=== PATIENT | female | born 1960 | race Caucasian/White ===

== ENCOUNTER 2017-04-04 10:37 | Inpatient (IN) | payer MEDICAID ==
[~2017-04-04] VITALS: Ht 162.6 cm; Wt 110.7 kg
[2017-04-04] MEDS ORDERED: SODIUM CHLORIDE 0.9% 1,000 ML IV ONE (10:43)
[2017-04-04] MEDS ORDERED: KETOROLAC TROMETH 30 MG/ML 1ML VIAL IV ONE ×2 (10:45→16:15)
[2017-04-04] MEDS ORDERED: ONDANSETRON HCL 4 MG/2 ML VIAL IV ONE ×3 (10:45→16:15)
[2017-04-04] MEDS ORDERED: LORazepam 2MG/ML-1ML VIAL IV ONE (10:45)
[2017-04-04 11:06] LABS: Basophils # (auto) 0.1 uL; Basophils % (auto) 0.7 % (0.0-2.0); Eosinophils # (auto) 0.2 uL; Eosinophils % (auto) 2.6 % (0.0-7.0); Hematocrit 44.8 % (36.0-46.0); Hemoglobin 15.1 g/dL (12.2-16.2); Lymphocytes # (auto) 1.7 uL; Lymphocytes % (auto) 19.3 % (10.0-50.0); Mean Corpuscular Hemoglobin 29.7 pg (28.0-32.0); Mean Corpuscular Hgb Conc. 33.6 g/dL (32.0-36.0); Mean Corpuscular Volume 88.4 fL (80.0-100.0); Mean Platelet Volume 9.7 fL (7.4-10.4); Monocytes # (auto) 0.3 uL; Monocytes % (auto) 3.7 % (0.0-12.0); Neutrophils # (auto) 6.6 uL; Neutrophils % (auto) 73.7 % (37.0-80.0); Platelet Count (auto) 212 10^3/uL (140-450)
[2017-04-04 11:20] LABS: INR 0.94 (0.9-1.15); Partial Thromboplastin Time 23.9 sec (22.64-33.71); Prothrombin Time 10.2 sec (9.37-12.3)
[2017-04-04 11:35] LABS: Albumin 3.8 g/dL (3.4-5.0); Alkaline Phosphatase 91 U/L (45-117); Anion Gap 9 (5-15); Aspartate Aminotransferase 18 U/L (15-37); Bilirubin, Total 0.3 mg/dL (0.2-1.0); Blood Urea Nitrogen 22 mg/dL (7-18); Calcium 8.9 mg/dL (8.5-10.1); Carbon Dioxide 27 mmol/L (21-32); Chloride 106 mmol/L (98-107); GFR African American 62 mL/min; GFR Non-African American 52 mL/min; Glucose 131 mg/dL (74-106); Potassium 4.3 mmol/L (3.5-5.1); Sodium 142 mmol/L (136-145); Total Protein 7.7 g/dL (6.4-8.2)
[2017-04-04 12:26] LABS: Urine Bilirubin Negative (Negative); Urine Blood 1+ /uL (Negative); Urine Color Yellow (Yellow); Urine Glucose Normal (Normal); Urine Ketone Negative (Negative); Urine Mucus FEW (None Seen); Urine Nitrite POSITIVE (Negative); Urine RBC 10 /hpf (0 - 4); Urine Squamous Epithelial Cell FEW /hpf (<5); Urine Urobilinogen Normal (Negative); Urine WBC Clumps PRESENT /hpf (None Seen)
[2017-04-04] MEDS ORDERED: HYDROmorphone HCL 2 MG/ML VL IV ONE (13:00)
[2017-04-04] MEDS: cefTRIAXone 1GM/50ML D5W 50 ML IV SCH (14:03)
[2017-04-04] MEDS ORDERED: ONDANSETRON HCL 4 MG/2 ML VIAL ONE (15:52)
[2017-04-04] MEDS ORDERED: KETOROLAC TROMETH 30 MG/ML 1ML VIAL ONE (15:53)
[2017-04-04] MEDS ORDERED: cloNIDine HCL 0.1 MG TAB PO PRN (18:00)
[2017-04-04] MEDS ORDERED: DEXTROSE (50%) 50ML SYRG IV PRN (18:00)
[2017-04-04] MEDS ORDERED: TEMAZEPAM 15 MG CAP PO PRN (18:00)
[2017-04-04] MEDS ORDERED: MORPHINE SULF INJ 2 MG/ML SYRINGE 1ML IV PRN (18:00)
[2017-04-04] MEDS ORDERED: VANCOMYCIN PER PHARMACY 0 MG IV SCH (18:00)
[2017-04-04] MEDS ORDERED: NITROGLYCERIN 0.4 MG SL TAB SL PRN (18:00)
[2017-04-04] MEDS: SODIUM CHLORIDE 0.9% 1,000 ML IV SCH (18:16)
[2017-04-04] MEDS: MORPHINE SULF INJ 2 MG/ML SYRINGE 1ML IV PRN ×2 (18:16→22:23)
[2017-04-04] MEDS: ONDANSETRON HCL 4 MG/2 ML VIAL IV PRN ×2 (18:16→23:09)
[2017-04-04] MEDS ORDERED: VANCOMYCIN 1GM/250ML D5W 250 ML IV ONE (18:30)
[2017-04-04] MEDS ORDERED: MULTIPLE VITAMIN TAB PO ONE (18:30)
[2017-04-04 22:00] VITALS: BP 105/37
[2017-04-04] MEDS: ACCU-CHEK COMFORT CURVE STRIP VI SCH (22:00)
[2017-04-04] MEDS: InsuLIN REG 1unit/0.01ml Soln (100units/ml) SC SCH (22:00)
[2017-04-04] MEDS: FAMOTIDINE 20 MG TAB PO SCH (22:46)
[2017-04-04] MEDS: HYDROcodone-ACET 5/325MG TAB PO PRN (23:18)
[2017-04-05] MEDS: MORPHINE SULF INJ 2 MG/ML SYRINGE 1ML IV PRN ×2 (01:56→06:15)
[2017-04-05] MEDS: cefTRIAXone 1GM/50ML D5W 50 ML IV SCH (01:56)
[2017-04-05] MEDS: HYDROcodone-ACET 5/325MG TAB PO PRN (04:12)
[2017-04-05 05:30] VITALS: BP 112/50
[2017-04-05] MEDS ORDERED: VANCOMYCIN 1GM/250ML D5W 250 ML IV SCH (06:00)
[2017-04-05 06:24] LABS: Potassium 4.5 mmol/L (3.5-5.1)
[2017-04-05 06:29] LABS: Hematocrit 38.5 % (36.0-46.0); Mean Corpuscular Hgb Conc. 33.7 g/dL (32.0-36.0); Mean Corpuscular Volume 89.3 fL (80.0-100.0); Mean Platelet Volume 10.8 fL (7.4-10.4); Platelet Count (auto) 134 10^3/uL (140-450); Red Cell Distribution Width 14.4 % (11.6-16.0); SUSPECT VIEW TRANSMISSION; White Blood Cell 14.5 10^3/uL (4.4-10.8)
[2017-04-05 06:32] LABS: Albumin 2.8 g/dL (3.4-5.0); BUN/Creatinine Ratio 16.1; Calcium 7.9 mg/dL (8.5-10.1)
[2017-04-05 06:38] LABS: Metamyelocytes % 0; Myelocytes % 0; Promyelocytes % 0; Reactive Lymphocytes 0
[2017-04-05 06:44] LABS: Bilirubin, Total 0.5 mg/dL (0.2-1.0); Total Protein 6.2 g/dL (6.4-8.2)
[2017-04-05] MEDS: InsuLIN REG 1unit/0.01ml Soln (100units/ml) SC SCH ×4 (07:00→22:00)
[2017-04-05] MEDS: ACCU-CHEK COMFORT CURVE STRIP VI SCH ×4 (07:00→22:11)
[2017-04-05 08:17] LABS: Large Platelets FEW; Platelet Estimate Adequate; Stomatocytes Few
[2017-04-05 08:34] VITALS: BP 109/55
[2017-04-05] MEDS: MULTIPLE VITAMIN TAB PO SCH (10:00)
[2017-04-05] MEDS: FAMOTIDINE 20 MG TAB PO SCH ×2 (10:00→22:11)
[2017-04-05] MEDS: SODIUM CHLORIDE 0.9% 1,000 ML IV SCH (10:25)
[2017-04-05] MEDS: ONDANSETRON HCL 4 MG/2 ML VIAL IV PRN (10:26)
[2017-04-05] MEDS ORDERED: ceFAZolin 1GM/50ML D5W 50 ML IV ONE (11:43)
[2017-04-05] MEDS ORDERED: PIPERACILLIN-TAZOB 3.375GM/D5W100ML IV SCH (12:00)
[2017-04-05 12:28] VITALS: BP 109/57
[2017-04-05] MEDS ORDERED: fentaNYL CITRATE 100 MCG/2 ML VL ONE (12:51)
[2017-04-05] MEDS ORDERED: MIDAZOLAM HCL 1MG/1ML-2 ML VIAL ONE (12:52)
[2017-04-05] MEDS ORDERED: ROCURONIUM 10MG/ML 10ML VIAL IV ONE (13:01)
[2017-04-05] MEDS ORDERED: PROPOFOL 10 MG/ML 20 ML IV ONE (13:05)
[2017-04-05] MEDS ORDERED: ePHEDrine SULFATE 50 MG/ML AMP IV PRN (14:15)
[2017-04-05] MEDS ORDERED: ONDANSETRON HCL 4 MG/2 ML VIAL IV ONE (14:15)
[2017-04-05] MEDS ORDERED: hydrALAZINE HCL 20 MG/ML VL IV PRN (14:15)
[2017-04-05] MEDS ORDERED: fentaNYL CITRATE 100 MCG/2 ML VL IV ONE (15:00)
[2017-04-05] MEDS: PIPERACILLIN-TAZOB 3.375GM/D5W100ML IV SCH ×2 (15:21→22:11)
[2017-04-05 16:41] VITALS: BP 122/55
[2017-04-05] MEDS: ACETAMINOPHEN 325 MG TAB PO PRN (18:05)
[2017-04-05 22:00] VITALS: BP 114/79
[2017-04-06] VITALS (7 sets, daily range): BP systolic 103–136; BP diastolic 43–67
[2017-04-06] MEDS: PIPERACILLIN-TAZOB 3.375GM/D5W100ML IV SCH ×4 (04:58→21:40)
[2017-04-06] MEDS: SODIUM CHLORIDE 0.9% 1,000 ML IV SCH ×2 (04:59→21:41)
[2017-04-06] MEDS: HYDROcodone-ACET 5/325MG TAB PO PRN (05:16)
[2017-04-06] MEDS: ONDANSETRON HCL 4 MG/2 ML VIAL IV PRN ×2 (05:16→20:39)
[2017-04-06] MEDS: InsuLIN REG 1unit/0.01ml Soln (100units/ml) SC SCH ×4 (06:30→21:42)
[2017-04-06] MEDS: ACCU-CHEK COMFORT CURVE STRIP VI SCH ×4 (07:00→21:42)
[2017-04-06] MEDS: ACETAMINOPHEN 325 MG TAB PO PRN (08:18)
[2017-04-06] MEDS: MULTIPLE VITAMIN TAB PO SCH (10:19)
[2017-04-06] MEDS: FAMOTIDINE 20 MG TAB PO SCH ×2 (10:19→21:41)
[2017-04-06] MEDS: MORPHINE SULF INJ 2 MG/ML SYRINGE 1ML IV PRN (12:41)
[2017-04-06] MEDS: LEVALBUTEROL HCL 1.25 MG/3 ML NEB NEB SCH (19:21)
[2017-04-06] MEDS ORDERED: methylPREDNISolone SOD SUCC 125 MG/2 ML VL IV ONE (20:45)
[2017-04-07] VITALS (8 sets, daily range): BP systolic 103–145; BP diastolic 43–88
[2017-04-07] MEDS: LEVALBUTEROL HCL 1.25 MG/3 ML NEB NEB SCH ×4 (00:14→22:24)
[2017-04-07] MEDS: PIPERACILLIN-TAZOB 3.375GM/D5W100ML IV SCH ×2 (03:51→10:15)
[2017-04-07] MEDS: ACETAMINOPHEN 325 MG TAB PO PRN ×2 (05:21→11:39)
[2017-04-07] MEDS: ACCU-CHEK COMFORT CURVE STRIP VI SCH ×4 (05:48→21:26)
[2017-04-07] MEDS: InsuLIN REG 1unit/0.01ml Soln (100units/ml) SC SCH ×4 (05:48→21:26)
[2017-04-07] MEDS ORDERED: FUROSEMIDE 40 MG/4 ML VIAL IV ONE (10:00)
[2017-04-07] MEDS: FAMOTIDINE 20 MG TAB PO SCH ×2 (10:15→21:16)
[2017-04-07] MEDS: MULTIPLE VITAMIN TAB PO SCH (10:16)
[2017-04-07] MEDS: ONDANSETRON HCL 4 MG/2 ML VIAL IV PRN (11:38)
[2017-04-07 11:44] LABS: B-Type Natriuretic Peptide 89.4 pg/mL (0-100)
[2017-04-07] MEDS: SODIUM CHLORIDE 0.9% 1,000 ML IV SCH (12:35)
[2017-04-07] MEDS: MORPHINE SULF INJ 2 MG/ML SYRINGE 1ML IV PRN (13:51)
[2017-04-07] MEDS ORDERED: cefTRIAXone 1GM/50ML D5W 50 ML IV ONE ×3 (14:00→15:00)
[2017-04-07] MEDS: BUDESONIDE (INHALATION) 0.5 MG/2 ML NEB NEB SCH ×2 (14:38→22:24)
[2017-04-07] MEDS ORDERED: diphenhdrAMINE HCL 25 MG CAP PO ONE (18:08)
[2017-04-07] MEDS ORDERED: diphenhdrAMINE HCL 25 MG CAP PO PRN (18:15)
[2017-04-07] MEDS: cefTRIAXone 1GM/50ML D5W 50 ML IV SCH (21:16)
[2017-04-08] MEDS: SODIUM CHLORIDE 0.9% 1,000 ML IV SCH (04:58)
[2017-04-08 05:30] VITALS: BP 139/65
[2017-04-08] MEDS: LEVALBUTEROL HCL 1.25 MG/3 ML NEB NEB SCH (05:59)
[2017-04-08] MEDS: BUDESONIDE (INHALATION) 0.5 MG/2 ML NEB NEB SCH (05:59)
[2017-04-08 06:08] LABS: Basophils # (auto) 0 uL; Eosinophils # (auto) 0 uL; Hematocrit 34.8 % (36.0-46.0); Hemoglobin 11.6 g/dL (12.2-16.2); Lymphocytes # (auto) 0.6 uL; Lymphocytes % (auto) 6.5 % (10.0-50.0); Mean Corpuscular Hgb Conc. 33.3 g/dL (32.0-36.0); Monocytes # (auto) 0.4 uL; Monocytes % (auto) 4.9 % (0.0-12.0); Neutrophils # (auto) 7.9 uL; Neutrophils % (auto) 88.6 % (37.0-80.0); Platelet Count (auto) 133 10^3/uL (140-450); Red Cell Distribution Width 14.7 % (11.6-16.0)
[2017-04-08 06:28] LABS: BUN/Creatinine Ratio 21.1; Calcium 8.6 mg/dL (8.5-10.1); Potassium 3.9 mmol/L (3.5-5.1)
[2017-04-08] MEDS: ACCU-CHEK COMFORT CURVE STRIP VI SCH ×2 (07:06→11:30)
[2017-04-08] MEDS: InsuLIN REG 1unit/0.01ml Soln (100units/ml) SC SCH ×2 (07:07→11:30)
[2017-04-08 09:00] VITALS: BP 145/60
[2017-04-08] MEDS: MULTIPLE VITAMIN TAB PO SCH (09:01)
[2017-04-08] MEDS: cefTRIAXone 1GM/50ML D5W 50 ML IV SCH (09:01)
[2017-04-08] MEDS: FAMOTIDINE 20 MG TAB PO SCH (09:01)
[2017-04-08] MEDS ORDERED: cefTRIAXone 1GM/50ML D5W 50 ML IV SCH (10:00)
[2017-04-08 10:36] VITALS: BP 134/70
== END 2017-04-08 12:10 | disposition home or self-care (01) | DRG 465 ==
LOC: EDBD 10:37 → ER 10:40 → OBSVTOIN 10:45 → OVERFLOW 10:45 → TELE 10:46 → TELE-WESTW 21:11
PROVIDERS: ADMIT Emergency Medicine; ATTEND Internal Medicine
PROC: 0TF6XZZ Fragmentation in Right Ureter, External Approach (ICD-10-PCS; principal; 2017-04-05 12:47)
DX: N13.2 Hydronephrosis with renal and ureteral calculous obstruction (principal); N18.3 Chronic kidney disease, stage 3 (moderate); N39.0 Urinary tract infection, site not specified; I12.9 Hypertensive chronic kidney disease with stage 1 through stage 4 chronic kidney disease, or unspecified chronic kidney disease; K57.30 Diverticulosis of large intestine without perforation or abscess without bleeding; K42.9 Umbilical hernia without obstruction or gangrene; R73.9 Hyperglycemia, unspecified; Z81.8 Family history of other mental and behavioral disorders; Z82.49 Family history of ischemic heart disease and other diseases of the circulatory system; Z80.9 Family history of malignant neoplasm, unspecified; Z84.1 Family history of disorders of kidney and ureter
CPT/HCPCS: 36415; 51702; 71010; 74176; 76856; 80048; 80053; 81001; 82962; 83036; 83605; 83880; 84484; 85007; 85025; 85027; 85610; 85730; 87040; 87077; 87086; 87088; 87186; 93005; 94640; 96361; 96365; 96375; 96376; 99291; G0378; J0690; J0696; J1815; J1885; J2250; J2405; J2543; J2704

== ENCOUNTER 2017-04-09 05:52 | Inpatient (IN) | payer MEDICAID ==
[~2017-04-09] VITALS: Ht 162.6 cm; Wt 111.5 kg
[2017-04-09] MEDS ORDERED: SODIUM CHLORIDE 0.9% 1,000 ML IVB ONE (06:32)
[2017-04-09] MEDS ORDERED: KETOROLAC TROMETH 30 MG/ML 1ML VIAL IV ONE (06:45)
[2017-04-09] MEDS ORDERED: METOCLOPRAMIDE HCL 5MG/ml INJ 2ml VIAL IV ONE (06:45)
[2017-04-09] MEDS ORDERED: HYDROmorphone HCL 2 MG/ML VL IV ONE (06:45)
[2017-04-09 07:34] LABS: Basophils # (auto) 0 uL; Basophils % (auto) 0.1 % (0.0-2.0); Eosinophils # (auto) 0 uL; Eosinophils % (auto) 0.3 % (0.0-7.0); Hematocrit 40.6 % (36.0-46.0); Hemoglobin 13.7 g/dL (12.2-16.2); Lymphocytes # (auto) 1.5 uL; Mean Corpuscular Hemoglobin 29.7 pg (28.0-32.0); Mean Corpuscular Hgb Conc. 33.7 g/dL (32.0-36.0); Mean Platelet Volume 10.4 fL (7.4-10.4); Monocytes # (auto) 0.7 uL; Monocytes % (auto) 6.3 % (0.0-12.0); Neutrophils # (auto) 9.5 uL; Neutrophils % (auto) 80.3 % (37.0-80.0); Platelet Count (auto) 173 10^3/uL (140-450); Red Cell Distribution Width 15.1 % (11.6-16.0); SUSPECT VIEW TRANSMISSION; White Blood Cell 11.8 10^3/uL (4.4-10.8)
[2017-04-09 07:55] LABS: Albumin 2.9 g/dL (3.4-5.0); BUN/Creatinine Ratio 22.5; Bilirubin, Total 0.4 mg/dL (0.2-1.0); Calcium 8.9 mg/dL (8.5-10.1); Magnesium 2.1 mg/dL (1.6-2.6); Potassium 3.8 mmol/L (3.5-5.1); Total Protein 7.4 g/dL (6.4-8.2)
[2017-04-09 07:57] LABS: Urine Bilirubin Negative (Negative); Urine Color Yellow (Yellow); Urine Glucose Normal (Normal); Urine Ketone Negative (Negative); Urine Nitrite Negative (Negative); Urine RBC 102 /hpf (0 - 4); Urine Squamous Epithelial Cell FEW /hpf (<5); Urine Urobilinogen Normal (Negative); Urine WBC Clumps PRESENT /hpf (None Seen); Urine pH 5.5 (5.0-8.0)
[2017-04-09 07:58] LABS: Urine Blood 2+ /uL (Negative)
[2017-04-09] MEDS ORDERED: cefTRIAXone 1GM/50ML D5W 50 ML IV ONE ×2 (11:45)
[2017-04-09] MEDS ORDERED: NITROGLYCERIN 0.4 MG SL TAB SL PRN (11:45)
[2017-04-09] MEDS ORDERED: TEMAZEPAM 15 MG CAP PO PRN (11:45)
[2017-04-09] MEDS ORDERED: ACETAMINOPHEN 500 MG TAB PO PRN (11:45)
[2017-04-09] MEDS ORDERED: LORazepam 0.5 MG TAB PO PRN (11:45)
[2017-04-09] MEDS ORDERED: HYDROcodone-ACET 5/325MG TAB PO PRN (11:45)
[2017-04-09] MEDS ORDERED: MORPHINE SULF INJ 2 MG/ML SYRINGE 1ML IV PRN (11:45)
[2017-04-09] MEDS: MORPHINE SULF INJ 2 MG/ML SYRINGE 1ML IV PRN ×2 (12:35→18:43)
[2017-04-09] MEDS: SODIUM CHLORIDE 0.9% 1,000 ML IV SCH (12:35)
[2017-04-09] MEDS: PROMETHAZINE HCL 25 MG/ML 1ML IV PRN ×2 (12:35→18:43)
[2017-04-09 12:57] VITALS: BP 145/75
[2017-04-09 13:00] VITALS: BP 106/69
[2017-04-09 17:11] VITALS: BP 144/72
[2017-04-09] MEDS: TAMSULOSIN HYDROCHLORIDE 0.4 MG CAP PO SCH (18:03)
[2017-04-09 20:00] VITALS: BP 128/52
[2017-04-09 22:00] VITALS: BP 128/52
[2017-04-10 05:00] VITALS: BP 150/69
[2017-04-10] MEDS: SODIUM CHLORIDE 0.9% 1,000 ML IV SCH ×3 (05:46→17:44)
[2017-04-10 06:26] LABS: Basophils # (auto) 0 uL; Basophils % (auto) 0.4 % (0.0-2.0); Eosinophils # (auto) 0.1 uL; Eosinophils % (auto) 1.5 % (0.0-7.0); Hematocrit 35.5 % (36.0-46.0); Lymphocytes # (auto) 1.5 uL; Lymphocytes % (auto) 21.3 % (10.0-50.0); Mean Corpuscular Hemoglobin 29.6 pg (28.0-32.0); Mean Corpuscular Hgb Conc. 33.7 g/dL (32.0-36.0); Mean Corpuscular Volume 87.8 fL (80.0-100.0); Mean Platelet Volume 9.4 fL (7.4-10.4); Monocytes # (auto) 0.8 uL; Monocytes % (auto) 10.9 % (0.0-12.0); Neutrophils # (auto) 4.8 uL; Neutrophils % (auto) 65.9 % (37.0-80.0); Platelet Count (auto) 187 10^3/uL (140-450); Red Cell Distribution Width 14.8 % (11.6-16.0); White Blood Cell 7.3 10^3/uL (4.4-10.8)
[2017-04-10 06:38] LABS: INR 0.95 (0.9-1.15); Partial Thromboplastin Time 24.4 sec (22.64-33.71); Prothrombin Time 10.4 sec (9.37-12.3)
[2017-04-10 07:02] LABS: Albumin 2.6 g/dL (3.4-5.0); BUN/Creatinine Ratio 22.2; Bilirubin, Total 0.5 mg/dL (0.2-1.0); Calcium 8.2 mg/dL (8.5-10.1); Potassium 3.7 mmol/L (3.5-5.1); Total Protein 6.6 g/dL (6.4-8.2)
[2017-04-10 09:00] VITALS: BP 153/74
[2017-04-10] MEDS: cefTRIAXone 1GM/50ML D5W 50 ML IV SCH (09:00)
[2017-04-10 13:00] VITALS: BP 151/66
[2017-04-10] MEDS: TAMSULOSIN HYDROCHLORIDE 0.4 MG CAP PO SCH (18:15)
[2017-04-10 22:00] VITALS: BP 150/76
[2017-04-10] MEDS: PROMETHAZINE HCL 25 MG/ML 1ML IV PRN (23:00)
[2017-04-11] MEDS: SODIUM CHLORIDE 0.9% 1,000 ML IV SCH ×2 (04:15→13:58)
[2017-04-11 05:00] VITALS: BP 154/78
[2017-04-11 06:23] LABS: INR 0.97 (0.9-1.15); Prothrombin Time 10.6 sec (9.37-12.3)
[2017-04-11 06:27] LABS: Potassium 3.6 mmol/L (3.5-5.1)
[2017-04-11 06:33] LABS: Albumin 2.1 g/dL (3.4-5.0); BUN/Creatinine Ratio 18.4; Bilirubin, Total 0.5 mg/dL (0.2-1.0); Calcium 8.2 mg/dL (8.5-10.1); Total Protein 5.9 g/dL (6.4-8.2)
[2017-04-11 07:10] LABS: Basophils # (auto) 0 uL; Basophils % (auto) 0.4 % (0.0-2.0); Eosinophils # (auto) 0.3 uL; Hematocrit 34.3 % (36.0-46.0); Hemoglobin 11.5 g/dL (12.2-16.2); Lymphocytes # (auto) 1.8 uL; Lymphocytes % (auto) 21.1 % (10.0-50.0); Mean Corpuscular Hemoglobin 29.7 pg (28.0-32.0); Mean Corpuscular Hgb Conc. 33.5 g/dL (32.0-36.0); Mean Corpuscular Volume 88.5 fL (80.0-100.0); Monocytes # (auto) 0.7 uL; Neutrophils # (auto) 5.8 uL; Neutrophils % (auto) 67.5 % (37.0-80.0); Platelet Count (auto) 197 10^3/uL (140-450); Red Cell Distribution Width 14.8 % (11.6-16.0); White Blood Cell 8.6 10^3/uL (4.4-10.8)
[2017-04-11 08:00] VITALS: BP 155/69
[2017-04-11 09:00] VITALS: BP 155/69
[2017-04-11] MEDS: cefTRIAXone 1GM/50ML D5W 50 ML IV SCH (09:54)
[2017-04-11 13:00] VITALS: BP 149/77
== END 2017-04-11 16:52 | disposition home or self-care (01) | DRG 466 ==
LOC: ER 05:58 → TELE 05:59 → TELE-WESTW 12:55 → WEST WING 04-10 13:11
PROVIDERS: ADMIT Internal Medicine; ATTEND Internal Medicine
DX: T83.021A Displacement of indwelling urethral catheter, initial encounter (principal); N17.9 Acute kidney failure, unspecified; N13.2 Hydronephrosis with renal and ureteral calculous obstruction; N39.0 Urinary tract infection, site not specified; I10 Essential (primary) hypertension; N20.0 Calculus of kidney; D72.829 Elevated white blood cell count, unspecified; Z80.9 Family history of malignant neoplasm, unspecified
CPT/HCPCS: 36415; 71010; 74176; 80053; 81001; 83690; 83735; 85025; 85610; 85730; 87040; 87081; 87086; 96361; 96365; 96375; J0696; J1885

== ENCOUNTER 2023-04-28 15:50 | Inpatient (IN) | payer MEDICAID ==
[~2023-04-28] VITALS: Ht 152.4 cm; Wt 120.0 kg
[2023-04-28 17:01] LABS: Basophils # (auto) 0 10 ^3/uL (0-0.2); Basophils % (auto) 0.7 % (0.0-2.0); Eosinophils # (auto) 0.3 10 ^3/uL (0-0.8); Hematocrit 48.2 % (36.0-46.0); Lymphocytes # (auto) 1.3 10 ^3/uL (0.4-5.4); Mean Corpuscular Hemoglobin 24.7 pg (28.0-32.0); Mean Corpuscular Hgb Conc. 31.1 g/dL (32.0-36.0); Mean Corpuscular Volume 79.6 fL (80.0-100.0); Monocytes # (auto) 0.7 10 ^3/uL (0-1.3); Monocytes % (auto) 9.6 % (0.0-12.0); Neutrophils # (auto) 4.8 10 ^3/uL (1.6-8.6); Neutrophils % (auto) 67.7 % (37.0-80.0); Nucleated Red Blood Cells % 0.6 %; Red Blood Cells 6.06 10^6/uL (4.0-5.20); White Blood Cell 7.1 10^3/uL (4.4-10.8)
[2023-04-28 17:02] LABS: Red Cell Distribution Width 20.2 % (11.8-14.3)
[2023-04-28 17:18] LABS: Albumin 3.1 g/dL (3.4-5.0); Calcium 8.5 mg/dL (8.5-10.1); Magnesium 2.2 mg/dL (1.6-2.6)
[2023-04-28 17:21] LABS: BUN/Creatinine Ratio 24.8 (10.0-20.0); Bilirubin, Total 0.7 mg/dL (0.2-1.0); Total Protein 7.6 g/dL (6.4-8.2)
[2023-04-28] MEDS ORDERED: IPRATROPIUM BROM 0.5 MG/2.5ML INH SOL NEB ONE (18:00)
[2023-04-28] MEDS ORDERED: DexAMETHasone SOD PHOS 10MG/1ML VIAL INJ IV ONE (18:00)
[2023-04-28] MEDS ORDERED: ALBUTEROL SULF 2.5 MG/0.5ML(0.5%) NEB SOLN NEB ONE (18:00)
[2023-04-28] MEDS ORDERED: FUROSEMIDE 20 MG/2 ML VIAL IV ONE (18:00)
[2023-04-28] MEDS: MAGNESIUM SULFATE 1GM/100ML 100 ML IV SCH ×2 (18:35→23:59)
[2023-04-28] MEDS ORDERED: DOCUSATE SOD 100 MG CAP PO PRN (22:30)
[2023-04-28] MEDS ORDERED: NITROGLYCERIN 0.4 MG SL TAB SL PRN (22:30)
[2023-04-28] MEDS ORDERED: IPRATROPIUM BROM 0.5 MG/2.5ML INH SOL NEB PRN (22:30)
[2023-04-28] MEDS ORDERED: ALBUTEROL SULF 2.5 MG/0.5ML(0.5%) NEB SOLN NEB PRN (22:30)
[2023-04-28] MEDS ORDERED: MORPHINE SULFATE INJ 2 MG/ml SYRG IV PRN (22:30)
[2023-04-28] MEDS ORDERED: LOS25T PO (22:40)
[2023-04-28] MEDS ORDERED: ESCI1TAB37 PO (22:40)
[2023-04-28] MEDS ORDERED: ATOR20TA50 PO (22:40)
[2023-04-28] MEDS ORDERED: BUPR200T49 PO (22:40)
[2023-04-28] MEDS ORDERED: PREG-109 PO (22:40)
[2023-04-28] MEDS: PREGABALIN CAPSULE 75 MG CAP PO SCH (23:38)
[2023-04-28] MEDS: ATORVASTATIN 20 MG TAB PO SCH (23:38)
[2023-04-28] MEDS: ACETAMINOPHEN 325 MG TAB PO PRN (23:39)
[2023-04-28] MEDS ORDERED: MAGNESIUM SULFATE 1GM/100ML 100 ML IV ONE (23:53)
[2023-04-29] VITALS (7 sets, daily range): BP systolic 104–132; BP diastolic 50–69
[2023-04-29 05:48] LABS: Basophils # (auto) 0 10 ^3/uL (0-0.2); Basophils % (auto) 0.5 % (0.0-2.0); Eosinophils # (auto) 0 10 ^3/uL (0-0.8); Monocytes # (auto) 0.1 10 ^3/uL (0-1.3); Red Blood Cells 5.79 10^6/uL (4.0-5.20); White Blood Cell 5.4 10^3/uL (4.4-10.8)
[2023-04-29 05:51] LABS: Eosinophils % (auto) 0.1 % (0.0-7.0); Hematocrit 46.1 % (36.0-46.0); Hemoglobin 14.5 g/dL (12.2-16.2); Lymphocytes # (auto) 0.8 10 ^3/uL (0.4-5.4); Lymphocytes % (auto) 15.3 % (10.0-50.0); Mean Corpuscular Hemoglobin 25.1 pg (28.0-32.0); Mean Corpuscular Hgb Conc. 31.5 g/dL (32.0-36.0); Mean Corpuscular Volume 79.7 fL (80.0-100.0); Monocytes % (auto) 1.9 % (0.0-12.0); Neutrophils # (auto) 4.5 10 ^3/uL (1.6-8.6); Neutrophils % (auto) 82.2 % (37.0-80.0); Nucleated Red Blood Cells % 0.4 %
[2023-04-29 05:55] LABS: Albumin 2.9 g/dL (3.4-5.0); Calcium 8.5 mg/dL (8.5-10.1); Potassium 4.6 mmol/L (3.5-5.1)
[2023-04-29 05:57] LABS: Red Cell Distribution Width 20.8 % (11.8-14.3)
[2023-04-29 05:58] LABS: BUN/Creatinine Ratio 23.9 (10.0-20.0); Bilirubin, Total 0.6 mg/dL (0.2-1.0); Total Protein 7.8 g/dL (6.4-8.2)
[2023-04-29] MEDS: SODIUM CHLOR 0.9% PF (SALINE LOCK) 10ML VIAL/SYR IV SCH ×3 (06:00→20:57)
[2023-04-29] MEDS: PREGABALIN CAPSULE 75 MG CAP PO SCH ×2 (10:29→20:56)
[2023-04-29] MEDS: CITALOPRAM HYDROBR 20 MG TAB PO SCH (10:29)
[2023-04-29] MEDS: ACETAMINOPHEN 325 MG TAB PO PRN (12:47)
[2023-04-29] MEDS ORDERED: predniSONE 20 MG TAB PO ONE (16:00)
[2023-04-29] MEDS: ATORVASTATIN 20 MG TAB PO SCH (20:56)
[2023-04-30] MEDS: ONDANSETRON HCL 4 MG/2 ML VIAL IV PRN ×2 (02:40→23:03)
[2023-04-30 05:00] VITALS: BP 136/74
[2023-04-30] MEDS: SODIUM CHLOR 0.9% PF (SALINE LOCK) 10ML VIAL/SYR IV SCH ×3 (05:39→21:27)
[2023-04-30 06:25] LABS: Potassium 4.7 mmol/L (3.5-5.1)
[2023-04-30 06:33] LABS: Calcium 8.8 mg/dL (8.5-10.1)
[2023-04-30 07:48] VITALS: BP 131/68
[2023-04-30 08:30] VITALS: BP 131/68
[2023-04-30] MEDS ORDERED: predniSONE 20 MG TAB PO SCH (10:00)
[2023-04-30] MEDS: methylPREDNISolone SOD SUCC 40 MG/ML VL IV SCH ×2 (10:03→21:23)
[2023-04-30] MEDS: CITALOPRAM HYDROBR 20 MG TAB PO SCH (10:05)
[2023-04-30] MEDS: PREGABALIN CAPSULE 75 MG CAP PO SCH ×2 (10:05→21:23)
[2023-04-30] MEDS: ALBUTEROL SULF 2.5 MG/0.5ML(0.5%) NEB SOLN NEB SCH ×3 (10:11→21:52)
[2023-04-30] MEDS: IPRATROPIUM BROM 0.5 MG/2.5ML INH SOL NEB SCH ×3 (10:11→21:52)
[2023-04-30 12:08] VITALS: BP 127/65
[2023-04-30 16:52] VITALS: BP 121/64
[2023-04-30] MEDS: ATORVASTATIN 20 MG TAB PO SCH (21:23)
[2023-04-30 22:00] VITALS: BP 125/51
[2023-05-01] MEDS: IPRATROPIUM BROM 0.5 MG/2.5ML INH SOL NEB SCH ×6 (02:22→21:46)
[2023-05-01] MEDS: ALBUTEROL SULF 2.5 MG/0.5ML(0.5%) NEB SOLN NEB SCH ×6 (02:22→21:46)
[2023-05-01] MEDS: ONDANSETRON HCL 4 MG/2 ML VIAL IV PRN (03:27)
[2023-05-01 05:00] VITALS: BP 133/68
[2023-05-01] MEDS: SODIUM CHLOR 0.9% PF (SALINE LOCK) 10ML VIAL/SYR IV SCH ×3 (06:11→21:22)
[2023-05-01 08:30] VITALS: BP 127/59
[2023-05-01 09:00] VITALS: BP 127/59
[2023-05-01] MEDS: methylPREDNISolone SOD SUCC 40 MG/ML VL IV SCH ×2 (09:24→21:12)
[2023-05-01] MEDS: PREGABALIN CAPSULE 75 MG CAP PO SCH ×2 (09:25→21:12)
[2023-05-01] MEDS: CITALOPRAM HYDROBR 20 MG TAB PO SCH (09:25)
[2023-05-01 10:37] LABS: BUN/Creatinine Ratio 32.4 (10.0-20.0); Calcium 8.5 mg/dL (8.5-10.1); Potassium 4.8 mmol/L (3.5-5.1)
[2023-05-01 12:14] VITALS: BP 117/49
[2023-05-01 16:53] VITALS: BP 140/61
[2023-05-01] MEDS: ACETAMINOPHEN 325 MG TAB PO PRN (19:33)
[2023-05-01] MEDS: ATORVASTATIN 20 MG TAB PO SCH (21:12)
[2023-05-01 22:00] VITALS: BP 115/58
[2023-05-02] VITALS (7 sets, daily range): BP systolic 110–126; BP diastolic 44–62
[2023-05-02] MEDS: IPRATROPIUM BROM 0.5 MG/2.5ML INH SOL NEB SCH ×6 (02:19→22:10)
[2023-05-02] MEDS: ALBUTEROL SULF 2.5 MG/0.5ML(0.5%) NEB SOLN NEB SCH ×6 (02:19→22:10)
[2023-05-02] MEDS: SODIUM CHLOR 0.9% PF (SALINE LOCK) 10ML VIAL/SYR IV SCH ×4 (04:56→21:35)
[2023-05-02 06:07] LABS: Basophils # (auto) 0 10 ^3/uL (0-0.2); Basophils % (auto) 0.1 % (0.0-2.0); Eosinophils # (auto) 0 10 ^3/uL (0-0.8); Hemoglobin 12.8 g/dL (12.2-16.2); Mean Corpuscular Hgb Conc. 31.1 g/dL (32.0-36.0); Monocytes # (auto) 0.7 10 ^3/uL (0-1.3)
[2023-05-02 06:09] LABS: Eosinophils % (auto) 0.1 % (0.0-7.0); Hematocrit 41.1 % (36.0-46.0); Lymphocytes # (auto) 0.9 10 ^3/uL (0.4-5.4); Lymphocytes % (auto) 14.4 % (10.0-50.0); Mean Corpuscular Hemoglobin 24.6 pg (28.0-32.0); Mean Corpuscular Volume 79.2 fL (80.0-100.0); Neutrophils # (auto) 4.9 10 ^3/uL (1.6-8.6); Neutrophils % (auto) 74.4 % (37.0-80.0); Nucleated Red Blood Cells % 0.2 %; Red Blood Cells 5.19 10^6/uL (4.0-5.20); White Blood Cell 6.6 10^3/uL (4.4-10.8)
[2023-05-02 06:30] LABS: Red Cell Distribution Width 20.4 % (11.8-14.3)
[2023-05-02 06:33] LABS: Calcium 8.9 mg/dL (8.5-10.1); Potassium 4.2 mmol/L (3.5-5.1)
[2023-05-02] MEDS: PREGABALIN CAPSULE 75 MG CAP PO SCH ×2 (08:52→21:35)
[2023-05-02] MEDS: CITALOPRAM HYDROBR 20 MG TAB PO SCH (08:52)
[2023-05-02] MEDS: methylPREDNISolone SOD SUCC 40 MG/ML VL IV SCH ×2 (08:52→21:35)
[2023-05-02] MEDS: ACETAMINOPHEN 325 MG TAB PO PRN (16:34)
[2023-05-02] MEDS: ATORVASTATIN 20 MG TAB PO SCH (21:35)
[2023-05-03] MEDS: IPRATROPIUM BROM 0.5 MG/2.5ML INH SOL NEB SCH ×6 (02:16→22:17)
[2023-05-03] MEDS: ALBUTEROL SULF 2.5 MG/0.5ML(0.5%) NEB SOLN NEB SCH ×6 (02:16→22:17)
[2023-05-03 05:00] VITALS: BP 119/61
[2023-05-03] MEDS: SODIUM CHLOR 0.9% PF (SALINE LOCK) 10ML VIAL/SYR IV SCH ×3 (06:00→21:50)
[2023-05-03 08:00] VITALS: BP 137/67
[2023-05-03 09:00] VITALS: BP 137/67
[2023-05-03] MEDS: PREGABALIN CAPSULE 75 MG CAP PO SCH ×2 (10:07→21:50)
[2023-05-03] MEDS: CITALOPRAM HYDROBR 20 MG TAB PO SCH (10:07)
[2023-05-03] MEDS: methylPREDNISolone SOD SUCC 40 MG/ML VL IV SCH ×2 (10:07→21:50)
[2023-05-03 13:00] VITALS: BP 117/54
[2023-05-03 17:00] VITALS: BP 148/70
[2023-05-03] MEDS: ATORVASTATIN 20 MG TAB PO SCH (21:50)
[2023-05-03 22:00] VITALS: BP 132/62
[2023-05-03] MEDS: ACETAMINOPHEN 325 MG TAB PO PRN (23:30)
[2023-05-03] MEDS: ONDANSETRON HCL 4 MG/2 ML VIAL IV PRN (23:30)
[2023-05-04] MEDS: IPRATROPIUM BROM 0.5 MG/2.5ML INH SOL NEB SCH ×6 (02:27→22:27)
[2023-05-04] MEDS: ALBUTEROL SULF 2.5 MG/0.5ML(0.5%) NEB SOLN NEB SCH ×6 (02:27→22:27)
[2023-05-04 05:00] VITALS: BP 137/60
[2023-05-04] MEDS: SODIUM CHLOR 0.9% PF (SALINE LOCK) 10ML VIAL/SYR IV SCH ×3 (06:00→21:28)
[2023-05-04 07:41] LABS: Basophils # (auto) 0 10 ^3/uL (0-0.2); Basophils % (auto) 0.1 % (0.0-2.0); Eosinophils # (auto) 0 10 ^3/uL (0-0.8); Hematocrit 43.1 % (36.0-46.0); Hemoglobin 13.7 g/dL (12.2-16.2); Lymphocytes # (auto) 0.4 10 ^3/uL (0.4-5.4); Lymphocytes % (auto) 8.3 % (10.0-50.0); Mean Corpuscular Hemoglobin 24.5 pg (28.0-32.0); Mean Corpuscular Hgb Conc. 31.8 g/dL (32.0-36.0); Mean Corpuscular Volume 77.1 fL (80.0-100.0); Monocytes # (auto) 0.3 10 ^3/uL (0-1.3); Monocytes % (auto) 5.2 % (0.0-12.0); Neutrophils # (auto) 4.4 10 ^3/uL (1.6-8.6); Neutrophils % (auto) 86.4 % (37.0-80.0); Nucleated Red Blood Cells % 0.1 %; Red Blood Cells 5.59 10^6/uL (4.0-5.20); White Blood Cell 5.1 10^3/uL (4.4-10.8)
[2023-05-04 07:44] LABS: Red Cell Distribution Width 20.2 % (11.8-14.3)
[2023-05-04 07:47] LABS: Potassium 4.5 mmol/L (3.5-5.1)
[2023-05-04 07:53] LABS: BUN/Creatinine Ratio 35.1 (10.0-20.0); Calcium 8.6 mg/dL (8.5-10.1)
[2023-05-04 08:00] VITALS: BP 129/56
[2023-05-04] MEDS: CITALOPRAM HYDROBR 20 MG TAB PO SCH (08:34)
[2023-05-04] MEDS: PREGABALIN CAPSULE 75 MG CAP PO SCH ×2 (08:34→21:25)
[2023-05-04] MEDS: methylPREDNISolone SOD SUCC 40 MG/ML VL IV SCH ×2 (08:35→21:26)
[2023-05-04 08:37] VITALS: BP 129/56
[2023-05-04] MEDS ORDERED: IOHEXOL 350 MG/ML 100ML IJ ONE (12:49)
[2023-05-04 13:00] VITALS: BP 120/65
[2023-05-04 16:55] VITALS: BP 142/88
[2023-05-04] MEDS: ATORVASTATIN 20 MG TAB PO SCH (21:25)
[2023-05-04 22:00] VITALS: BP 134/68
[2023-05-05] MEDS: IPRATROPIUM BROM 0.5 MG/2.5ML INH SOL NEB SCH ×3 (02:36→10:13)
[2023-05-05] MEDS: ALBUTEROL SULF 2.5 MG/0.5ML(0.5%) NEB SOLN NEB SCH ×3 (02:36→10:13)
[2023-05-05 03:57] VITALS: BP 134/67
[2023-05-05 05:22] VITALS: BP 108/63
[2023-05-05 05:47] LABS: Basophils # (auto) 0 10 ^3/uL (0-0.2); Eosinophils # (auto) 0 10 ^3/uL (0-0.8); Hematocrit 43.2 % (36.0-46.0); Hemoglobin 13.5 g/dL (12.2-16.2); Lymphocytes # (auto) 0.5 10 ^3/uL (0.4-5.4); Lymphocytes % (auto) 8.7 % (10.0-50.0); Mean Corpuscular Hemoglobin 24.3 pg (28.0-32.0); Mean Corpuscular Hgb Conc. 31.3 g/dL (32.0-36.0); Mean Corpuscular Volume 77.7 fL (80.0-100.0); Monocytes # (auto) 0.3 10 ^3/uL (0-1.3); Neutrophils # (auto) 4.8 10 ^3/uL (1.6-8.6); Neutrophils % (auto) 86.3 % (37.0-80.0); Red Blood Cells 5.56 10^6/uL (4.0-5.20); White Blood Cell 5.6 10^3/uL (4.4-10.8)
[2023-05-05 06:00] LABS: BUN/Creatinine Ratio 32.7 (10.0-20.0); Potassium 4.6 mmol/L (3.5-5.1)
[2023-05-05] MEDS: SODIUM CHLOR 0.9% PF (SALINE LOCK) 10ML VIAL/SYR IV SCH (06:00)
[2023-05-05 08:00] VITALS: BP 133/66
[2023-05-05] MEDS: methylPREDNISolone SOD SUCC 40 MG/ML VL IV SCH (08:41)
[2023-05-05] MEDS: PREGABALIN CAPSULE 75 MG CAP PO SCH (08:41)
[2023-05-05] MEDS: CITALOPRAM HYDROBR 20 MG TAB PO SCH (08:41)
[2023-05-05] MEDS ORDERED: PRED20TA2 PO (09:32)
[2023-05-05] MEDS ORDERED: ALBU108A14 IN (09:43)
[2023-05-05 11:07] VITALS: BP 133/93
== END 2023-05-05 13:15 | disposition home health service (06) | DRG 145 ==
LOC: ER 15:50 → EDBD 15:50 → TELE 22:36 → TELE-CENTR 04-29 12:26
PROVIDERS: ADMIT Nurse Practitioner Family; ATTEND Internal Medicine Pulmonary Disease
DX: J20.9 Acute bronchitis, unspecified (principal); J96.01 Acute respiratory failure with hypoxia; N17.9 Acute kidney failure, unspecified; E46 Unspecified protein-calorie malnutrition; Z68.43 Body mass index [BMI] 50.0-59.9, adult; F32.A Depression, unspecified; I10 Essential (primary) hypertension; E78.5 Hyperlipidemia, unspecified; Z20.822 Contact with and (suspected) exposure to COVID-19; G25.81 Restless legs syndrome; E03.9 Hypothyroidism, unspecified; E66.01 Morbid (severe) obesity due to excess calories; Z87.442 Personal history of urinary calculi
CPT/HCPCS: 36415; 36600; 71045; 71275; 80048; 80053; 82805; 83735; 83880; 84484; 85025; 85379; 87426; 87804; 93005; 94640; 96365; 96375; G0378; J1100; J2405

== ENCOUNTER 2025-06-29 10:58 | Inpatient (IN) | payer MEDICAID ==
[2025-06-29] VITALS (7 sets, daily range): BP systolic 149–172; BP diastolic 69–72; PULSE 73–105; RESP 14–20; TEMP 98.3; O2SAT 94–100
[~2025-06-29] VITALS: Ht 152.4 cm; Wt 105.0 kg
[~2025-06-29 10:58] MED LIST: ALBU108A14 IN; ATOR20TA50 PO; BUPR200T49 PO; ESCI1TAB37 PO; LOS25T PO; PRED20TA2 PO; PREG75CA90 PO
--- NOTE | 2025-06-29 11:05 | ED.PDOC ---
Altered Mental Status HPI Comments 65 year old female presents to the ED via EMS with a chief complaint of ALOC. Per EMS, 911 was called by patient's brother, patient was on a phone call with brother, he noticed patient was altered, not answering questions appropriately. EMS states patient was A&O x2, patient lives with sons, they were not able to answer questions regarding patient. Initial BP was 250/120, BP upon ED arrival 184/85. PMHx COPD, HTN. Patient is a poor historian. No other symptoms or modifying factors present at this time. Time Seen by MD: 10:55 Primary Care Provider: VINNIE Reviewed Notes: Medications, Allergies Allergies: Coded Allergies: NO KNOWN ALLERGIES (Unverified , 08/18/12) Home Meds Active Scripts Albuterol Sulfate (Proair Digihaler) 108 Mcg/Act Aer, 108 MCG IN Q6HPRN PRN for 30 Days, #90 AER Prov:TIFFANIE RUIZ MD 05/05/23 Prednisone (Prednisone) 20 Mg Tab, 20 MG PO BID for 5 Days, #10 TAB Prov:TIFFANIE RUIZ MD 05/05/23 Reported Medications Atorvastatin Calcium (ATORVASTATIN CALCIUM) 20 Mg Tab, 1 TAB PO 04/28/23 Pregabalin (Pregabalin) 75 Mg Cap, 1 CAP PO BID 04/28/23 Escitalopram Oxalate (ESCITALOPRAM OXALATE) 20 Mg Tab, 1 TAB PO DAILY 04/28/23 Losartan Potassium (Losartan Potassium) 25 Mg Tab, 1 TAB PO DAILY 04/28/23 Bupropion Hcl (Bupropion Hcl Er) 200 Mg Tab, 1 TAB PO QAM 04/28/23 Information Source: Patient, Emergency Med Personnel Mode of Arrival: EMS Severity: Moderate Timing: Hours Duration: Since onset Prehospital treatment: None Quality: Change in Behavior, Confusion History of: None Past Medical History PAST MEDICAL HISTORY: COPD, HTN, Kidney Stones Surgical History: .NET PROGRAMMER History: No Pertinent .NET PROGRAMMER History Family History Family History: Unobtainable Social History Smoker: Non-Smoker Alcohol: Occasionally Drugs: Denies Drug Use Lives In: Home Unable to Obtain due to: Altered Mental Status Physical Exam General Appearance: Moderate Distress, Normal HEENT: Normal ENT Inspection, Pharynx Normal, TMs Normal Neck: Full Range of Motion, Non-Tender, Normal, Normal Inspection Respiratory: Chest Non-Tender, Lungs Clear, No Accessory Muscle Use, No Respiratory Distress, Normal Breath Sounds Cardiovascular: No Edema, No JVD, No Murmur, No Gallop, Normal Peripheral Pulses, Regular Rate/Rhythm Breast Exam: Deferred Gastrointestinal: No Organomegaly, Non Tender, No Pulsatile Mass, Normal Bowel Sounds, Soft Genitalia: Deferred Pelvic: Deferred Rectal: Deferred Extremities: No calf tenderness, Normal capillary refill, Normal inspection, Normal range of motion, Non-tender, No pedal edema Musculoskeletal : Apperance: Normal Neurologic: Dizziness, No Motor Deficits, Normal Affect, Normal Mood, No Sensory Deficits Cerebellar Function: NOT DONE Reflexes: NOT DONE Skin: Dry, Normal Color, Warm Peripheral Pulses: 3+ Radial (R), 3+ Radial (L) Lymphatic: No Adenopathy Was a procedure done? Was a procedure done?: No Differential Diagnosis (ALOC) Differential Diagnosis: Dehydration, Encephalopathy X-Ray, Labs, Meds, VS Vital Signs Date Time Temp Pulse Resp B/P (MAP) Pulse Ox O2 Delivery O2 Flow Rate FiO2 06/29/25 12:07 83 06/29/25 11:27 84 14 175/89 (117) 94 06/29/25 11:27 84 14 94 Nasal Cannula* 3 32 06/29/25 11:02 98.1 81 18 185/84 97 98.1 Lab Test 06/29/25 12:00 06/29/25 11:13 Range/Units Urine Color Yellow Yellow Urine Clarity Clear Clear Urine pH 5.5 5.0-9.0 Urine Specific [place] 1.033 1.001-1.035 Urine Protein 2+ H Negative Urine Ketones Trace Negative Urine Blood 1+ H Negative /uL Urine Nitrite Negative Negative Urine Bilirubin Negative Negative Urine Urobilinogen 2 H Negative mg/dL Urine Leukocyte Esterase Negative Negative /uL Urine Glucose Normal Normal mg/dL White Blood Count 8.7 4.4-10.8 10^3/uL Red Blood Count 4.71 4.0-5.20 10^6/uL Hemoglobin 14.1 12.2-16.2 g/dL Hematocrit 41.1 36.0-46.0 % Mean Corpuscular Volume 87.1 80.0-100.0 fL Mean Corpuscular Hemoglobin 29.8 28.0-32.0 pg Mean Corpuscular Hemoglobin Concent 34.3 32.0-36.0 g/dL Red Cell Distribution Width 15.1 H 11.8-14.3 % Platelet Count 234 140-450 10^3/uL Mean Platelet Volume 9.0 6.9-10.8 fL Neutrophils (%) (Auto) 69.8 37.0-80.0 % Lymphocytes (%) (Auto) 19.5 10.0-50.0 % Monocytes (%) (Auto) 9.7 0.0-12.0 % Eosinophils (%) (Auto) 0.7 0.0-7.0 % Basophils (%) (Auto) 0.3 0.0-2.0 % Neutrophils # (Auto) 6.1 1.6-8.6 10 ^3/uL Lymphocytes # (Auto) 1.7 0.4-5.4 10 ^3/uL Monocytes # (Auto) 0.8 0-1.3 10 ^3/uL Eosinophils # (Auto) 0.1 0-0.8 10 ^3/uL Basophils # (Auto) 0 0-0.2 10 ^3/uL Nucleated Red Blood Cells 0.0 % Sodium Level 145 136-145 mmol/L Potassium Level 3.5 3.5-5.1 mmol/L Chloride Level 107 98-107 mmol/L Carbon Dioxide Level 28 20-31 mmol/L Anion Gap 10 5-15 Blood Urea Nitrogen 19 9-23 mg/dL Creatinine 0.92 0.550-1.02 mg/dL Glomerular Filtration Rate Calc 70 >90 mL/min BUN/Creatinine Ratio 20.7 H 10.0-20.0 Serum Glucose 101 74-106 mg/dL Calcium Level 8.8 8.7-10.4 mg/dL Troponin I High Sensitivity 19 </=34 ng/L Current Medications Medications (Trade) Dose Ordered Sig/Ting Route Start Time Stop Time Status Last Admin Sodium Chloride 1,000 ml @ 1,000 mls/hr Q1H ONCE IV 06/29/25 11:15 06/29/25 12:14 DC 06/29/25 12:[address] [address] Ph: [phone] DIAGNOSTIC IMAGING Diagnostic Imaging Report : [id number] Signed PATIENT: RUPAL RENEACCT: [id number] UNIT: [id number] : 1960 LOC: ER ROOM / BED: / AGE / SEX: 65 / F ADM STATUS: REG ER SERVICE 1103 ORDERING PHYSICIAN: ANTONINA BERRY MD PROCEDURE(s): CXRP - CHEST PORTABLE REASON: sob ORDER NUMBER(s): [id number], ACCESSION NUMBER(s): [id number] CLINICAL INFORMATION: Shortness of breath. TECHNIQUE: Single AP portable chest radiograph was obtained. COMPARISON: CT CT ANGIO CHEST CONTRAST on DOS: 05/04/23, XY CHEST PORTABLE on DOS: 04/28/23 FINDINGS: Lungs: Mild atelectasis in the lung bases. No focal consolidation visualized. No pneumothorax or pleural effusion. Cardiac: Cardiac silhouette is at the upper limits of normal in size, unchanged. Pulmonary vasculature: Mild prominence of the pulmonary vasculature. Mediastinum/darren: Unremarkable. Bones: No acute osseous abnormality identified. Other: No other significant findings. IMPRESSION: Mild prominence of the pulmonary vasculature, May suggest a mild degree of pulmonary vascular congestion in the appropriate clinical setting. Correlate with clinical findings. [place] [address] Ph: [phone] DIAGNOSTIC IMAGING Diagnostic Imaging Report : [id number] Signed PATIENT: RUPAL RENEACCT: [id number] UNIT: [id number] : 1960 LOC: ER ROOM / BED: / AGE / SEX: 65 / F ADM STATUS: REG ER SERVICE 1115 ORDERING PHYSICIAN: ANTONINA BERRY MD PROCEDURE(s): HWOCT - HEAD WITHOUT CONTRAST REASON: altered ORDER NUMBER(s): [id number], ACCESSION NUMBER(s): [id number] CLINICAL INFORMATION: Altered mental status. TECHNIQUE: Axial imaging was obtained through the brain without contrast. C oronal and sagittal reformatted images were obtained, reviewed, and stored. Images were reviewed in brain and bone windows. All CT scans at this medical facility are performed using dose modulation techniques as appropriate to a performed exam including the following: Automated exposure control was utilized; adjustment of the MA and/or KV according to patient size; and use of iterative reconstruction technique. CTDIvol = 62.08 mGy DLP = 1130.06 mGy-cm COMPARISON: None FINDINGS: There is no acute intracranial hemorrhage. No mass effect or midline shift. Small areas of hypoattenuation in the parietal lobes bilaterally, may be sequelae of ischemia, likely chronic. The ventricles and sulci are within normal limits in size for age. Basal cisterns are patent. The calvarium is unremarkable. Mild mucosal thickening of the paranasal sinuses. Mastoid air cells are clear. IMPRESSION: 1. No CT evidence of acute intracranial abnormality. 2. Focal areas of hypoattenuation in the parietal lobes bilaterally, may be s equelae of prior ischemia, most likely chronic. Correlate with clinical findings. 3. Additional findings as described above. Patient disoriented. Blood pressure elevated. Vitals stable. Placed on oxygen. Unable to get history from the patient. Possible urosepsis. Establish intravenous access. Was given labetalol. Continue to monitor. Time of 1ST Reevaluation: 11:25 Reevaluation 1ST: Unchanged Patient Education/Counseling: Diagnosis, Treatment, Prognosis Family Education/Counseling: No Family Present SEPSIS Sepsis Screen Physician Orders Chest Portable (06/29/25 11:03) Head Without Contrast (06/29/25 11:15) County Nurse (06/29/25 11:03) Electrocardigram (06/29/25 11:05) Sodium Chloride 0.9% (06/29/25 11:15) Insert Arreola Catheter QSHIFT (06/29/25 11:15) Vital Signs Date Time Temp Pulse Resp B/P (MAP) Pulse Ox O2 Delivery O2 Flow Rate FiO2 06/29/25 12:07 83 06/29/25 11:27 84 14 175/89 (117) 94 06/29/25 11:27 84 14 94 Nasal Cannula* 3 32 06/29/25 11:02 98.1 81 18 185/84 97 98.1 Laboratory Tests Test 06/29/25 11:13 White Blood Count 8.7 10^3/uL (4.4-10.8) Medications Medications Dose Ordered Sig/Ting Route Start Time Stop Time Status Last Admin Dose Admin Sodium Chloride 1,000 ml @ 1,000 mls/hr Q1H ONCE IV 06/29/25 11:15 06/29/25 12:14 DC 06/29/25 12:19 Departure 1 Departure Time of Disposition: 11:14 Impression: Primary Impression: Metabolic encephalopathy Additional Impression: Hypertensive urgency Disposition: 09 ADMITTED INPATIENT Admit to: Med Surg Condition: Guarded Critical Care Note Critical Care Time?: Yes (90 min-critical care time only) Stability Stability form required: No Heart Score Heart Score: Heart Score Response (Comments) Value History Slightly Suspicious 0 EKG Normal 0 Age 45-64 1 Risk Factors >3 or Hx ASHD 2 Troponin Normal limit 0 Total 3 I personally scribed for ANTONINA BERRY MD ([email or web address]) on 06/29/25 at 11:05. Electronically submitted by Rebeca Bennett ([email or web address]). I personally scribed for ANTONINA BERRY MD ([email or web address]) on 06/29/25 at 13:04. Electronically submitted by Naty Nelson ([email or web address]). I personally scribed for ANTONINA BERRY MD ([email or web address]) on 06/29/25 at 13:04. Electronically submitted by Naty Nelson ([email or web address]). ANTONINA BERRY MD Jun 29, 2025 11:05
[2025-06-29 11:31] LABS: Hematocrit 41.1 % (36.0-46.0); Hemoglobin 14.1 g/dL (12.2-16.2); Mean Corpuscular Hemoglobin 29.8 pg (28.0-32.0); Mean Corpuscular Volume 87.1 fL (80.0-100.0); Nucleated Red Blood Cells % 0.0 %
[2025-06-29 11:38] LABS: Potassium 3.5 mmol/L (3.5-5.1); Sodium 145 mmol/L (136-145)
[2025-06-29 11:39] LABS: Anion Gap 10 (5-15); Carbon Dioxide 28 mmol/L (20-31)
[2025-06-29 11:40] LABS: Calcium 8.8 mg/dL (8.7-10.4)
[2025-06-29 11:45] LABS: BUN/Creatinine Ratio 20.7 (10.0-20.0); Blood Urea Nitrogen 19 mg/dL (9-23); Glucose 101 mg/dL (74-106)
[2025-06-29 11:47] LABS: Chloride 107 mmol/L (98-107)
--- NOTE | 2025-06-29 12:07 | DVH ---
CLINICAL INFORMATION: Altered mental status. TECHNIQUE: Axial imaging was obtained through the brain without contrast. Coronal and sagittal reform atted images were obtained, reviewed, and stored. Images were reviewed in brain and bone windows. Al l CT scans at this medical facility are performed using dose modulation techniques as appropriate to a performed exam including the following: Automated exposure control was utilized; adjustment of the MA and/or KV according to patient size; and use of iterative reconstruction technique. CTDIvol = 62.0 8 mGy DLP = 1130.06 mGy-cm COMPARISON: None FINDINGS: There is no acute intracranial hemorrhage. No mass effect or midline shift. Small areas of hypoattenuation in the parietal lobes bilaterally, may be sequelae of ischemia, likely chronic. The v entricles and sulci are within normal limits in size for age. Basal cisterns are patent. The calvari um is unremarkable. Mild mucosal thickening of the paranasal sinuses. Mastoid air cells are clear. IMPRESSION: 1. No CT evidence of acute intracranial abnormality. 2. Focal areas of hypoattenuation in the parietal lobes bilaterally, may be sequelae of prior ischemi a, most likely chronic. Correlate with clinical findings. 3. Additional findings as described above.
[2025-06-29] MEDS: SODIUM CHLORIDE 0.9% 1,000 ML IV ONE ×2 (12:19→14:59)
[2025-06-29 12:23] LABS: Urine Protein, UAD 2+ (Negative)
--- NOTE | 2025-06-29 12:48 | DVH ---
CLINICAL INFORMATION: Shortness of breath. TECHNIQUE: Single AP portable chest radiograph was obtained. COMPARISON: CT CT ANGIO CHEST CONTRAST on DOS: 05/04/23, XY CHEST PORTABLE on DOS: 04/28/23 FINDINGS: Lungs: Mild atelectasis in the lung bases. No focal consolidation visualized. No pneumothorax or pleu ral effusion. Cardiac: Cardiac silhouette is at the upper limits of normal in size, unchanged. Pulmonary vasculature: Mild prominence of the pulmonary vasculature. Mediastinum/darren: Unremarkable. Bones: No acute osseous abnormality identified. Other: No other significant findings. IMPRESSION: Mild prominence of the pulmonary vasculature, May suggest a mild degree of pulmonary vascular congest ion in the appropriate clinical setting. Correlate with clinical findings.
[2025-06-29] MEDS: SODIUM CHLORIDE 0.9% 1,000 ML IVB ONE (13:21)
[2025-06-29] MEDS ORDERED: ALBUTEROL SULF 2.5 MG/0.5ML(0.5%) NEB SOLN NEB PRN (15:30)
[2025-06-29] MEDS ORDERED: NITROGLYCERIN 0.4 MG SL TAB SL PRN (15:30)
[2025-06-29] MEDS ORDERED: MORPHINE SULFATE INJ 2 MG/ml SYRG IV PRN (15:30)
--- NOTE | 2025-06-29 15:45 | DVHHP2 ---
History of Present Illness Reason for Visit: ALOC likely due to hypertensive encephalopathy History of Present Illness This is a 65-year-old female with history of obesity hypertension, hyper lipidemia, COPD on 3 L home oxygen presents to ED via EMS with chief complaint of ALOC witnessed by patient's brother while speaking to her on the phone. EMS states patient was alert oriented x2, lives with two sons and were not able to answer questions. Initial BP was 250/120 upon ED at 184/85. Upon evaluation of patient in ER bed 6, denies pain, shortness of breaths or other symptoms. The patient was unaware of reason of coming to the emergency room when asked. Patient is a poor historian. The patient and brother who is at the bedside is concerned about her symptoms and would like to be further evaluated and treated. The patient will be admitted under hospitalist care to the telemetry unit for continuous monitoring. The patient denies fever, chills, headache, dizziness, palpitation, shortness of breath, chest pain, nausea, vomiting, abdominal pain, diarrhea, constipation and other associated symptoms. The plan has been discussed with the patient and brother in which all questions concerns have been addressed Cardiovascular: HTN Pulmonary: COPD (3 L home oxygen) Past Surgical History: Family History: None Smoke: No ALCOHOL: none Drugs: None Lives: with Family Domestic Violence: Neg Review of Systems Neurological: Confusion Allergies: Coded Allergies: NO KNOWN ALLERGIES (Unverified , 08/18/12) Medications Current Medications Medications Dose Ordered Sig/Ting Route Start Time Stop Time Status Last Admin Dose Admin Albuterol 2.5 mg Q2HPRN PRN NEB 06/29/25 15:30 UNV Albuterol 2.5 mg Q6HR NEB 06/29/25 18:00 UNV Ipratropium [place] 0.5 mg Q6HR NEB 06/29/25 18:00 UNV Hydralazine HCl 10 mg Q6HP PRN IV 06/29/25 15:30 UNV Enoxaparin Sodium 40 mg DAILY SC 06/30/25 10:00 UNV Acetaminophen 650 mg Q6HP PRN PO 06/29/25 15:30 UNV Nitroglycerin 0.4 mg Q5MINP PRN SL 06/29/25 15:30 UNV Morphine Sulfate 2 mg Q30M PRN IV 06/29/25 15:30 UNV Exam Vital Signs Vital Signs Date Time Temp Pulse Resp B/P (MAP) Pulse Ox O2 Delivery O2 Flow Rate FiO2 06/29/25 14:00 98.0 81 12 172/72 (105) 91 98.0 06/29/25 11:27 Nasal Cannula* 3 32 General Appearance: Alert, Oriented X3, Cooperative, No acute distress HEENT: Atraumatic, PERRLA, Mucous membr. moist/pink Respiratory: Clear to auscultation, Normal air movement Cardiovascular: Normal S1, Normal S2, No murmurs Abdominal: Normal bowel sounds, Soft, No tenderness, No hepatospenomegaly, No masses Extremities: No clubbing, No cyanosis, No edema, Normal pulses, No tenderness/swelling Skin: No rashes, No breakdown Neuro: Normal speech, Strength at 5/5 X4 ext, Normal tone Psych/Mental Status: Mental status NL, Mood NL Labs/Xrays Labs Test 06/29/25 12:00 06/29/25 11:13 Range/Units Urine Color Yellow Yellow Urine Clarity Clear Clear Urine pH 5.5 5.0-9.0 Urine Specific [place] 1.033 1.001-1.035 Urine Protein 2+ H Negative Urine Ketones Trace Negative Urine Blood 1+ H Negative /uL Urine Nitrite Negative Negative Urine Bilirubin Negative Negative Urine Urobilinogen 2 H Negative mg/dL Urine Leukocyte Esterase Negative Negative /uL Urine Glucose Normal Normal mg/dL White Blood Count 8.7 4.4-10.8 10^3/uL Red Blood Count 4.71 4.0-5.20 10^6/uL Hemoglobin 14.1 12.2-16.2 g/dL Hematocrit 41.1 36.0-46.0 % Mean Corpuscular Volume 87.1 80.0-100.0 fL Mean Corpuscular Hemoglobin 29.8 28.0-32.0 pg Mean Corpuscular Hemoglobin Concent 34.3 32.0-36.0 g/dL Red Cell Distribution Width 15.1 H 11.8-14.3 % Platelet Count 234 140-450 10^3/uL Mean Platelet Volume 9.0 6.9-10.8 fL Neutrophils (%) (Auto) 69.8 37.0-80.0 % Lymphocytes (%) (Auto) 19.5 10.0-50.0 % Monocytes (%) (Auto) 9.7 0.0-12.0 % Eosinophils (%) (Auto) 0.7 0.0-7.0 % Basophils (%) (Auto) 0.3 0.0-2.0 % Neutrophils # (Auto) 6.1 1.6-8.6 10 ^3/uL Lymphocytes # (Auto) 1.7 0.4-5.4 10 ^3/uL Monocytes # (Auto) 0.8 0-1.3 10 ^3/uL Eosinophils # (Auto) 0.1 0-0.8 10 ^3/uL Basophils # (Auto) 0 0-0.2 10 ^3/uL Nucleated Red Blood Cells 0.0 % Sodium Level 145 136-145 mmol/L Potassium Level 3.5 3.5-5.1 mmol/L Chloride Level 107 98-107 mmol/L Carbon Dioxide Level 28 20-31 mmol/L Anion Gap 10 5-15 Blood Urea Nitrogen 19 9-23 mg/dL Creatinine 0.92 0.550-1.02 mg/dL Glomerular Filtration Rate Calc 70 >90 mL/min BUN/Creatinine Ratio 20.7 H 10.0-20.0 Serum Glucose 101 74-106 mg/dL Calcium Level 8.8 8.7-10.4 mg/dL Troponin I High Sensitivity 19 </=34 ng/L ORDERING PHYSICIAN: ANTONINA BERRY MD PROCEDURE(s): HWOCT - HEAD WITHOUT CONTRAST REASON: altered ORDER NUMBER(s): [id number], ACCESSION NUMBER(s): [id number] CLINICAL INFORMATION: Altered mental status. TECHNIQUE: Axial imaging was obtained through the brain without contrast. Coronal and sagittal reformatted images were obtained, reviewed, and stored. Images were reviewed in brain and bone windows. All CT scans at this medical facility are performed using dose modulation techniques as appropriate to a performed exam including the following: Automated exposure control was utilized; adjustment of the MA and/or KV according to patient size; and use of iterative reconstruction technique. CTDIvol = 62.08 mGy DLP = 1130.06 mGy-cm COMPARISON: None FINDINGS: There is no acute intracranial hemorrhage. No mass effect or midline shift. Small areas of hypoattenuation in the parietal lobes bilaterally, may be sequelae of ischemia, likely chronic. The ventricles and sulci are within normal limits in size for age. Basal cisterns are patent. The calvarium is unremarkable. Mild mucosal thickening of the paranasal sinuses. Mastoid air cells are clear. IMPRESSION: 1. No CT evidence of acute intracranial abnormality. 2. Focal areas of hypoattenuation in the parietal lobes bilaterally, may be sequelae of prior ischemia, most likely chronic. Correlate with clinical findings. 3. Additional findings as described above. ATED BY: MART HOLDEN DO DICTATED DATE/TIME: 06/29/251204 SIGNED BY: MART HOLDEN DO SIGNED DATE/TIME: 06/29/251204 SEPSIS Sepsis Screen Date sepsis recognized/suspect: Jun 29, 2025 Time Sepsis recognized/suspect: 1127 Recent Procedure: No On Antibiotic Therapy: No Respiratory Rate >20: No Heart Rate >90: No Temp<36 C (96.8 F) or >38.3 C: No SBP <90 or MAP <65 mmHG: No New Acute Mental Status Change: Yes Is the patient on CPAP, BIPAP,: No Physician Orders Chest Portable (06/29/25 11:03) Head Without Contrast (06/29/25 11:15) Carbon Lamp Cleaner (06/29/25 11:03) Electrocardigram (06/29/25 11:05) Sodium Chloride 0.9% (06/29/25 11:15) Insert Arreola Catheter QSHIFT (06/29/25 11:15) Albuterol Medneb (Ventolin Medneb) (06/29/25 15:30) Albuterol Medneb (Ventolin Medneb) (06/29/25 18:00) Ipratropium Medneb (Atrovent Medneb) (06/29/25 18:00) Hydralazine Injection (Apresoline Inject (06/29/25 15:30) Lipid Panel (06/29/25 15:29) Admit (06/29/25 15:29) 2 Gm Sodium Diet (06/29/25 Dinner) Enoxaparin Sodium (Lovenox) (06/30/25 10:00) Complete Blood Count (06/30/25 04:00) Comprehensive Metabolic Panel (06/30/25 04:00) Condition: Fair (06/29/25 15:29) Acetaminophen Tablet (Tylenol Tablet) (06/29/25 15:30) Bedrest With Bathroom Privileg (06/29/25 15:29) Nitroglycerin Sublingual (Ntrostat Subli (06/29/25 15:30) Morphine Sulfate Injection (06/29/25 15:30) Stat Ekg For Chest Pain (06/29/25 15:) Notify Md Of Changes From Base (06/29/25 15:29) Database Analyst For 24 Hours (06/29/25 15:29) Emergency Dysrhythmia Protocol (06/29/25 15:) Rhythm Strips Once Every Shift (06/29/25 15:) Oxygen By Nasal Cannula (06/29/25:) Atorvastatin (Lipitor) (06/29/25 22:00) Losartan Tablet (Cozaar Tablet) (06/30/25 10:00) Pregabalin Capsule (Lyrica Capsule) (06/29/25 22:00) (Nf) Bupropion Hcl (Bupropion Hcl Er) (06/30/25 07:00) (Nf) Escitalopram Oxalate (06/30/25 10:00) Vital Signs Date Time Temp Pulse Resp B/P (MAP) Pulse Ox O2 Delivery O2 Flow Rate FiO2 06/29/25 14:00 98.0 81 12 172/72 (105) 91 98.0 06/29/25 13:00 84 12 161/80 (107) 91 06/29/25 12:07 83 06/29/25 11:27 84 14 175/89 (117) 94 06/29/25 11:27 84 14 94 Nasal Cannula* 3 32 06/29/25 11:02 98.1 81 18 185/84 97 98.1 Laboratory Tests Test 06/29/25 11:13 White Blood Count 8.7 10^3/uL (4.4-10.8) Medications Medications Dose Ordered Sig/Ting Route Start Time Stop Time Status Last Admin Dose Admin Sodium Chloride 1,000 ml @ 1,000 mls/hr Q1H ONCE IV 06/29/25 11:15 06/29/25 12:14 DC 06/29/25 12:19 1,000 MLS/HR Assessment/Plan Assessment/Plan ALOC likely due to hypertensive encephalopathy--but in by EMS for ALOC witnessed by phone conversation with brother Initial BP 250/120 then ED arrival 184/85 Upon evaluation patient alert oriented x3 able to answer questions but is a poor historian Denies chest pain or shortness of breath Admit to telemetry unit for continuous monitoring Reviewed CBC which was normal Reviewed BMP which is normal Urinalysis is normal Cardiac enzyme negative x1 Reviewed CT head which is normal Chest x-ray shows mild pulmonary vascular congestion Hydralazine 10 mg IV push q.6 p.r.n. SBP greater than 150 mmHg Continue antihypertensive agent as prescribed losartan COPD controlled On home O2 3 L continuously Keep SpO2 greater than 90% Titrate FiO2 up her down to maintain SpO2 Med neb q.6 hours Albuterol q.2h p.r.n. shortness of breath Hyperlipidemia Continue Lipitor as prescribed Morbid obesity Lipid panel pending Lifestyle modification counseling Reconcile home medication DVT prophylaxis PUD prophylaxis Labs in a.m. Discussed plan of care with the patient in which all questions concerns have been addressed Plan discussed with: Patient My Orders Orders - SUDEEP NUNEZ SUPERVISOR HARD CANDY Procedure Category Date Status Time Albuterol Medneb PHA 06/29/25 Logged (Ventolin Medneb) 15:30 Albuterol Medneb PHA 06/29/25 Logged (Ventolin Medneb) 18:00 Ipratropium Medneb PHA 06/29/25 Logged (Atrovent Medneb) 18:00 Hydralazine Injection PHA 06/29/25 Logged (Apresoline Inject 15:30 Lipid Panel LAB 06/29/25 Logged 15:29 Admit ADMIT 06/29/25 Transmitted 15:29 2 Gm Sodium Diet DIET 06/29/25 Transmitted Dinner Enoxaparin Sodium PHA 06/30/25 Logged (Lovenox) 10:00 Complete Blood Count LAB 06/30/25 Verified 04:00 Comprehensive LAB 06/30/25 Verified Metabolic Panel 04:00 Condition: Fair MAKAYLA 06/29/25 In Process 15:29 Acetaminophen Tablet PHA 06/29/25 Logged (Tylenol Tablet) 15:30 Bedrest With Bathroom MAK[facility]LA 06/29/25 In Process Privileg 15:29 Nitroglycerin PHA 06/29/25 Logged Sublingual (Ntrostat 15:30 Morphine Sulfate PHA 06/29/25 Logged Injection 15:30 Stat Ekg For Chest [facility] [place] 06/29/25 In Process Pain 15:29 Notify Of Changes [facility] [place] 06/29/25 In Process From Base 15:29 Database Analyst For [facility] [place] 06/29/25 In Process 24 Hours 15:29 Emergency Dysrhythmia [facility] [place] 06/29/25 In Process Protocol 15:29 Rhythm Strips Once [facility] [place] 06/29/25 In Process Every Shift 15:29 Oxygen By Nasal 06/29/25 Transmitted Cannula 15:29 Atorvastatin (Lipitor) [facility] 06/29/25 Transmitted 22:00 Losartan Tablet [facility] 06/30/25 Transmitted (Cozaar Tablet) 10:00 Pregabalin Capsule [facility] 06/29/25 Transmitted (Lyrica Capsule) 22:00 (Nf) Bupropion Hcl [facility] 06/30/25 Transmitted (Bupropion Hcl Er) 07:00 (Nf) Escitalopram [facility] 06/30/25 Transmitted Oxalate 10:00 Date of Service: Jun 29, 2025 Billing Provider: SUDEEP NUNEZ Common Visit Codes: [id number] INP/OBS CARE (HIGH) SUDEEP NUNEZP Jun 29, 2025 15:45
[2025-06-29 16:11] LABS: Triglycerides 101 mg/dL (< 150)
[2025-06-29 16:13] LABS: Cholesterol 180 mg/dL (< 200); HDL Cholesterol 48 mg/dL (40-59)
[2025-06-29] MEDS: ACETAMINOPHEN 325 MG TAB PO PRN (16:24)
[2025-06-29] MEDS: IPRATROPIUM BROM 0.5 MG/2.5ML INH SOL NEB SCH (18:12)
[2025-06-29] MEDS: ALBUTEROL SULF 2.5 MG/0.5ML(0.5%) NEB SOLN NEB SCH (18:13)
[2025-06-29] MEDS: hydrALAZINE HCL 20 MG/ML VL IV PRN (19:07)
[2025-06-29] MEDS ORDERED: HYDROcodone-ACET 5/325MG TAB PO PRN (20:45)
[2025-06-29] MEDS: ATORVASTATIN 20 MG TAB PO SCH (21:03)
[2025-06-29] MEDS: PREGABALIN CAPSULE 75 MG CAP PO SCH (21:03)
[2025-06-30] VITALS (16 sets, daily range): BP systolic 102–146; BP diastolic 73–87; PULSE 74–90; RESP 14–19; TEMP 97.1–98.6; O2SAT 97–100
[2025-06-30] MEDS: guaiFENesin-DM 100/10mg/5ml SYR PO PRN (00:47)
[2025-06-30] MEDS: BUPROPION HCL 200 MG PO SCH (06:58)
--- NOTE | 2025-06-30 07:15 | ECG ---
[facility] Test Date: 2025-06-29 Test Time: 12:07:28 Pat Name: RUAPL RENE Department: [facility] ED Patient ID: [facility]-[id number] Room: 0290T B Gender: F Manager Fitness: CARLY : 1960 Requested By: ANTONINA BERRY Order Number: [id number] Reading MD: Colt Brock Measurements Intervals [place] Rate: 83 P: 104 [place]: 130 QRS: 92 QRSD: 92 T: 57 QT: 384 QTc: 452 Interpretive Statements Right and left arm electrode reversal, interpretation assumes no reversal Sinus rhythm Right axis deviation Low voltage, precordial leads Borderline ST elevation, lateral leads Electronically Signed On 07-01-2025 18:19:37 PDT by Colt Brock Please click the below link to view image of tracing.
[2025-06-30 07:19] LABS: Hematocrit 42.3 % (36.0-46.0); Hemoglobin 14.3 g/dL (12.2-16.2); Mean Corpuscular Hemoglobin 29.7 pg (28.0-32.0); Mean Corpuscular Volume 88.2 fL (80.0-100.0); Nucleated Red Blood Cells % 0.4 %
[2025-06-30 07:23] LABS: Alanine Aminotransferase 10 U/L (7-40); Albumin 3.9 g/dL (3.2-4.8); Alkaline Phosphatase 105 U/L (46-116); Anion Gap 10 (5-15); BUN/Creatinine Ratio 14.3 (10.0-20.0); Blood Urea Nitrogen 13 mg/dL (9-23); Carbon Dioxide 26 mmol/L (20-31); Chloride 106 mmol/L (98-107); Sodium 142 mmol/L (136-145); Total Protein 6.3 g/dL (5.7-8.2)
[2025-06-30 07:24] LABS: Bilirubin, Total 1.0 mg/dL (0.2-1.0)
[2025-06-30 07:31] LABS: Calcium 8.6 mg/dL (8.7-10.4); Glucose 112 mg/dL (74-106); Potassium 3.2 mmol/L (3.5-5.1)
[2025-06-30] MEDS: ESCITALOPRAM OXALATE 20 MG PO SCH (10:00)
[2025-06-30] MEDS: ENOXAPARIN SOD 40 MG/0.4 ML SYRINGE SC SCH (10:56)
[2025-06-30] MEDS: LOSARTAN POTASSIUM 25 MG TAB PO SCH (10:56)
--- NOTE | 2025-06-30 14:54 | DVHPN2 ---
Subjective Patient reports persistent cough Reviewed: Care Plan, H&P, Labs Changes from previous H/P or p: No Changes General: Per HPI Objective Vitals Vital Signs Date Time Temp Pulse Resp B/P (MAP) Pulse Ox O2 Delivery O2 Flow Rate FiO2 06/30/25 13:00 97.1 78 16 126/73 (90) 98 97.1 06/30/25 07:13 Nasal Cannula* 2 28 Intake/Output Intake and Output 06/30/25 07:00 Intake Total 1345 ml Output Total 250 ml Balance 1095 ml Intake Oral 345 ml IV Total 1000 ml Output Urine Total 250 ml General Appearance: Alert, Oriented X3, Cooperative, No acute distress, Other (Obesity) HEENT: Atraumatic, PERRLA Lungs: Other (Decreased breath sounds bilaterally) Cardiovascular: Normal S1, Normal S2 Abdomen: Normal bowel sounds, Soft, No tenderness, No hepatospenomegaly Skin: Dry, Intact Psych/Mental Status: Mental status NL Medications Current Medications Medications Dose Ordered Sig/Ting Route Start Time Stop Time Status Last Admin Dose Admin Albuterol 2.5 mg Q2HPRN PRN NEB 06/29/25 15:30 Albuterol 2.5 mg Q6HR NEB 06/29/25 18:00 06/30/25 11:55 2.5 MG Ipratropium [place] 0.5 mg Q6HR NEB 06/29/25 18:00 06/30/25 11:55 0.5 MG Hydralazine HCl 10 mg Q6HP PRN IV 06/29/25 15:30 06/29/25 19:07 10 MG Enoxaparin Sodium 40 mg DAILY SC 06/30/25 10:00 06/30/25 10:56 40 MG Acetaminophen 650 mg Q6HP PRN PO 06/29/25 15:30 06/30/25 11:46 650 MG Nitroglycerin 0.4 mg Q5MINP PRN SL 06/29/25 15:30 Morphine Sulfate 2 mg Q30M PRN IV 06/29/25 15:30 Atorvastatin Calcium 20 mg HS PO 06/29/25 22:00 06/29/25 21:03 20 MG Losartan Potassium 25 mg DAILY PO 06/30/25 10:00 06/30/25 10:56 25 MG Pregabalin 75 mg BID PO 06/29/25 22:00 06/30/25 10:57 75 MG Patient Own Medication 1 tab QAM PO 06/30/25 07:00 Patient Own Medication 1 tab DAILY PO 06/30/25 10:00 Acetaminophen/ Hydrocodone Bitart 1 tab Q6HPRN PRN PO 06/29/25 20:45 Cancel Guaifenesin/ Dextromethorphan 10 ml Q6HP PRN PO 06/30/25 00:45 06/30/25 00:47 10 ML Laboratory Results Laboratory Tests 06/30/25 06:00 Chemistry Test 06/30/25 06:00 Albumin 3.9 g/dL (3.2-4.8) Calcium Level 8.6 mg/dL (8.7-10.4) L Total Protein 6.3 g/dL (5.7-8.2) LFT Test 06/30/25 06:00 Alanine Aminotransferase (ALT) 10 U/L (7-40) Alkaline Phosphatase 105 U/L (46-116) Aspartate Amino Transferase (AST) 17 U/L (13-40) Total Bilirubin 1.0 mg/dL (0.2-1.0) Urinalysis Test 06/29/25 12:00 Urine Color Yellow (Yellow) Urine Clarity Clear (Clear) Urine pH 5.5 (5.0-9.0) Urine Specific [place] 1.033 (1.001-1.035) Urine Protein 2+ (Negative) H Urine Ketones Trace (Negative) Urine Blood 1+ /uL (Negative) H Urine Nitrite Negative (Negative) Urine Bilirubin Negative (Negative) Urine Urobilinogen 2 mg/dL (Negative) H Urine Leukocyte Esterase Negative /uL (Negative) Urine Glucose Normal mg/dL (Normal) Labs and/or images reviewed: Labs reviewed by me, Image(s) reviewed by me Assessment/Plan Assessment/Plan Impression: -hypertensive crisis -metabolic encephalopathy secondary to hypertensive crisis -acute on chronic hypoxic respiratory failure -impression -peripheral neuropathy -morbid obesity -COPD Plan: -high-resolution CT scan of the chest -CT scan of the head negative for any acute pathology -bronchodilators -continue antihypertensives -antitussives -reassess for discharge in a.m. Total time spent with patient discussing and formulating plan of care: 35 minutes. This medical document was created using an electronic medical record system with [employer] dictation system. Although this document has been carefully reviewed, there may still be some phonetic and typographical errors. These areas are purely typographical due to imperfections of the software programs, and do not reflect any compromise in the patient's medical care. Plan discussed with: Patient, Other (RN) Date of Service: Jun 30, 2025 Billing Provider: LUANNE MARIA NP Common Visit Codes: [id number] INP/OBS CARE(HIGH) LUANNE MARIA NP Jun 30, 2025 14:54
[2025-07-01] VITALS (12 sets, daily range): BP systolic 110–137; BP diastolic 55–74; PULSE 74–102; RESP 16–18; TEMP 97.5–98; O2SAT 95–100
--- NOTE | 2025-07-01 10:49 | DVH ---
Procedure: CT CHEST WITHOUT CONTRAST Reason for study/Clinical History: ILD Comparison Study: None TECHNIQUE: Multidetector CT of the chest was performed from the lung apices to the upper abdomen with out the use of intravenous contract. Axial, coronal and sagittal multiplanar reformats were performed . Radiation Dose Information: CT Dose: CTDI volume is 29.13 mGy. Dose-length product is 1044.75 mGy*cm The dose indicators for CT are the volume Computed Tomography (CT) Dose Index (CTDIvol) and the Dose Length Product (DLP), and are measured in units of mGy and mGy-cm, respectively. These indicators are not patient dose, but values generated from the CT scanner acquisition factors. The report includes radiation exposure data for exposures received during this examination. FINDINGS: Lower neck: Unremarkable. Lungs: No focal consolidation. No suspicious pulmonary nodule. Heart/Vascular Structures: Cardiomegaly. Vascular calcifications of the aorta. Lymph Nodes: No adenopathy Pleura: No pleural effusion or significant pneumothorax. Musculoskeletal: No acute osseous abnormality. Soft tissues: Normal. Upper abdomen: Limited portions of the upper abdomen are unremarkable. IMPRESSION: No acute intrathoracic abnormality. No findings to suggest interstitial lung disease. Radiation optimization: All CT scans at this facility use at least one of these dose optimization chayito hniques: automated exposure control mA and/or kV adjustment per patient size (includes targeted exam s where dose is matched to clinical indication) or iterative reconstruction.
[2025-07-01] MEDS ORDERED: NIFE1TAB30 PO (15:44)
--- NOTE | 2025-07-01 15:50 | DVHDS2 ---
Discharge Summary Date of Admission Jun 29, 2025 at 15:29 Date of Discharge: Jul 01, 2025 Admitting Diagnosis ALOC Labs/Diagnostic Data: Laboratory Results Test 06/30/25 06:00 06/29/25 17:58 06/29/25 12:00 06/29/25 11:13 White Blood Count 7.9 10^3/uL (4.4-10.8) Red Blood Count 4.80 10^6/uL (4.0-5.20) Hemoglobin 14.3 g/dL (12.2-16.2) Hematocrit 42.3 % (36.0-46.0) Mean Corpuscular Volume 88.2 fL (80.0-100.0) Mean Corpuscular Hemoglobin 29.7 pg (28.0-32.0) Mean Corpuscular Hemoglobin Concent 33.7 g/dL (32.0-36.0) Red Cell Distribution Width 15.0 % (11.8-14.3) Platelet Count 168 10^3/uL (140-450) Mean Platelet Volume 9.6 fL (6.9-10.8) Neutrophils (%) (Auto) 62.1 % (37.0-80.0) Lymphocytes (%) (Auto) 25.1 % (10.0-50.0) Monocytes (%) (Auto) 9.3 % (0.0-12.0) Eosinophils (%) (Auto) 2.5 % (0.0-7.0) Basophils (%) (Auto) 1.0 % (0.0-2.0) Neutrophils # (Auto) 4.9 10 ^3/uL (1.6-8.6) Lymphocytes # (Auto) 2.0 10 ^3/uL (0.4-5.4) Monocytes # (Auto) 0.7 10 ^3/uL (0-1.3) Eosinophils # (Auto) 0.2 10 ^3/uL (0-0.8) Basophils # (Auto) 0.1 10 ^3/uL (0-0.2) Nucleated Red Blood Cells 0.4 % Platelet Estimate Adequate Clumped Platelets Few Sodium Level 142 mmol/L (136-145) Potassium Level 3.2 mmol/L (3.5-5.1) Chloride Level 106 mmol/L (98-107) Carbon Dioxide Level 26 mmol/L (20-31) Anion Gap 10 (5-15) Blood Urea Nitrogen 13 mg/dL (9-23) Creatinine 0.91 mg/dL (0.550-1.02) Glomerular Filtration Rate Calc 71 mL/min (>90) BUN/Creatinine Ratio 14.3 (10.0-20.0) Serum Glucose 112 mg/dL (74-106) Calcium Level 8.6 mg/dL (8.7-10.4) Total Bilirubin 1.0 mg/dL (0.2-1.0) Aspartate Amino Transferase (AST) 17 U/L (13-40) Alanine Aminotransferase (ALT) 10 U/L (7-40) Alkaline Phosphatase 105 U/L (46-116) Total Protein 6.3 g/dL (5.7-8.2) Albumin 3.9 g/dL (3.2-4.8) POC Glucose 110 mg/dl (70-106) Urine Color Yellow (Yellow) Urine Clarity Clear (Clear) Urine pH 5.5 (5.0-9.0) Urine Specific [place] 1.033 (1.001-1.035) Urine Protein 2+ (Negative) Urine Ketones Trace (Negative) Urine Blood 1+ /uL (Negative) Urine Nitrite Negative (Negative) Urine Bilirubin Negative (Negative) Urine Urobilinogen 2 mg/dL (Negative) Urine Leukocyte Esterase Negative /uL (Negative) Urine Glucose Normal mg/dL (Normal) Troponin I High Sensitivity 19 ng/L (</=34) Triglycerides Level 101 mg/dL (< 150) Cholesterol Level 180 mg/dL (< 200) LDL Cholesterol 119 mg/dL (< 100) HDL Cholesterol 48 mg/dL (40-59) Other Laboratory Tests 06/30/25 06:00 Brief Hx & Hospital Course: History of Present Illness This is a 65-year-old female with history of obesity hypertension, hyperlipidemia, COPD on 3 L home oxygen presents to ED via EMS with chief complaint of ALOC witnessed by patient's brother while speaking to her on the phone. EMS states patient was alert oriented x2, lives with two sons and were not able to answer questions. Initial BP was 250/120 upon ED at 184/85. Upon evaluation of patient in ER bed 6, denies pain, shortness of breaths or other symptoms. The patient was unaware of reason of coming to the emergency room when asked. Patient is a poor historian. The patient and brother who is at the bedside is concerned about her symptoms and would like to be further evaluated and treated. The patient will be admitted under hospitalist care to the telemetry unit for continuous monitoring. The patient denies fever, chills, headache, dizziness, palpitation, shortness of breath, chest pain, nausea, vomiting, abdominal pain, diarrhea, constipation and other associated symptoms. The plan has been discussed with the patient and brother in which all questions concerns have been addressed. Course of hospitalization: Patient had CT scan of the head which was essentially unremarkable. Blood pressure is markedly improved. Patient is now A&O x4. Yesterday, the patient reports that she was diagnosed with COPD. High-resolution CT scan was performed yesterday which did not reveal any pulmonary disease. Review of the medications reveals that she is currently taking losartan, with her chief complaint of cough probably venous secondary to [place]/Arb side effect. Patient was agreeable to be discharged home. She will continue all previous home medications other than losartan. Patient will be placed on Procardia XL 60 mg p.o. daily for blood pressure control. She is instructed to follow up with her PCP in 1-2 weeks. All questions answered. Physical examination General: Alert and Oriented x3. No acute distress. Well-nourished. Obese Eyes: EOMI. Anicteric. HENT: Moist mucous membranes. Lungs: Clear to auscultation bilaterally. No accessory muscle use. Cardiovascular: Regular rate and rhythm. No murmur. No JVD. Abdomen: Soft, non-tender and non-distended. No palpable masses. Extremities: No edema. Non-tender. Skin: No rashes or lesions. Warm. Neurologic: No focal neurological deficits. CN II-XII grossly intact, but not individually tested. Psychiatric: Cooperative. Appropriate mood and affect. Total time spent with patient discussing and formulating plan of care: 35 minutes. This medical document was created using an electronic medical record system with [employer] dictation system. Although this document has been carefully reviewed, there may still be some phonetic and typographical errors. These areas are purely typographical due to imperfections of the software programs, and do not reflect any compromise in the patient's medical care. Condition at Discharge: Fair Final Diagnosis/Problems List Hypertensive Encephalopathy Secondary diagnosis: -hypertensive crisis -metabolic encephalopathy secondary to hypertensive crisis -acute on chronic hypoxic respiratory failure -impression -peripheral neuropathy -morbid obesity -COPD Discharge Disposition: Home Discharge Instruct/Medications Diet: Cardiac 2g Na,low cholest Activity: No Restrictions, As Tolerated Follow Up/Referral: Follow up with PCP in 1-2 weeks Medications: Stop lisinopril given probable CHAPARRO inhibitor cough. Procardia XL 60 mg p.o. daily Continue all previous home medications Scheduled Bupropion Hcl (Bupropion Hcl Er), 1 TAB PO QAM, (Reported) Escitalopram Oxalate (Escitalopram Oxalate), 1 TAB PO DAILY, (Reported) Losartan Potassium (Losartan Potassium), 1 TAB PO DAILY, (Reported) Nifedipine (Nifedipine Er), 1 TAB PO DAILY Prednisone (Prednisone), 20 MG PO BID Pregabalin (Pregabalin), 1 CAP PO BID, (Reported) Scheduled PRN Albuterol Sulfate (Proair Digihaler), 108 MCG IN Q6HPRN PRN Miscellaneous Medications Atorvastatin Calcium (Atorvastatin Calcium), 1 TAB PO, (Reported) 36 Discharge Statement: "Patient was advised to return to the ER or call 911 if any headaches, dizziness, shortness of breath, chest pain, abdominal pain, bleeding, fevers, or worsening of medical condition. Patient was counseled about treatment plan, medications, possible side effects, patientverbalized understanding. All questions were answered to the best of my ability. This discharge took greater then 30 minutes in planning, reviewing documentation, counseling the patient, and discussing with other team members." ASSESSMENT ASSESSMENT Assessment Hypertensive Encephalopathy Date of Service: Jul 01, 2025 Billing Provider: LUANNE MARIA NP Common Visit Codes: 91999-QVY/OBS DISCH DAY >30min LUANNE MARIA NP Jul 01, 2025 15:50
== END 2025-07-01 18:00 | disposition home or self-care (01) | DRG 52 ==
LOC: ER 10:58 → EDBD 10:58 → OVERFLOW 15:29 → TELE-WESTW 22:52
PROVIDERS: ADMIT Nurse Practitioner Acute Care; ATTEND Nurse Practitioner Acute Care
DX: I67.4 Hypertensive encephalopathy (principal); J96.21 Acute and chronic respiratory failure with hypoxia; I16.0 Hypertensive urgency; G93.41 Metabolic encephalopathy; E66.01 Morbid (severe) obesity due to excess calories; G62.9 Polyneuropathy, unspecified; J44.9 Chronic obstructive pulmonary disease, unspecified; E78.5 Hyperlipidemia, unspecified; Z87.442 Personal history of urinary calculi; Z98.891 History of uterine scar from previous surgery; Z79.899 Other long term (current) drug therapy; Z68.42 Body mass index [BMI] 45.0-49.9, adult; I16.9 Hypertensive crisis, unspecified
CPT/HCPCS: 36415; 70450; 71045; 71250; 80048; 80053; 80061; 81003; 82962; 84484; 85025; 93005; 94640; 96360; 99291; 99292; G0378